=== PATIENT | male | born 1970 ===

== ENCOUNTER 2018-06-07 14:24 | Emergency (ER) | payer OTHER, SELFPAY ==
[2018-06-07 14:30] VITALS: BP 123/86; PULSE 75; RESP 15; TEMP 98.5; O2SAT 97
--- NOTE | 2018-06-07 14:44 | ED PDOC ---
HPI: Back Time Seen by Provider: 06/07/18 14:36 Chief Complaint (Nursing): Back Pain Chief Complaint (Provider): Back Pain History Per: Patient, Dry Cleaner Helper (SAM Vargas at bedside for [place]ian Translation) History/Exam Limitations: no limitations Onset/Duration Of Symptoms: Days (x1) Current Symptoms Are (Timing): Still Present Additional Complaint(s): 48 year old male, with no significant past medical history, presenting for evaluation of back pain x1 day. Patient states he woke up this morning with the back pain. He denies any recent heavy lifting, trauma, fall, or urinary problems. Patient reports he fell off a ladder 8 years ago, but denies any history of back pain, or similar episodes of pain. Patient denies taking any medication for his pain today. PMD: None Past Medical History Reviewed: Historical Data, Nursing Documentation, Vital Signs Vital Signs: Last Vital Signs Temp 98.5 F 06/07/18 14:26 Pulse 75 06/07/18 14:26 Resp 15 06/07/18 14:26 BP 123/86 06/07/18 14:26 Pulse Ox 97 06/07/18 14:26 - Medical History PMH: No Chronic Diseases - Surgical History Surgical History: No Surg Hx - Family History Family History: States: Unknown Family Hx - Social History Current smoker - smoking cessation education provided: No Alcohol: Social Drugs: Denies - Immunization History Hx Tetanus Toxoid Vaccination: No (Pt. unsure.) - Home Medications Home Medications: Ambulatory Orders Medication Instructions Recorded Cyclobenzaprine [Cyclobenzaprine 10 mg PO TID PRN #20 tab 06/07/18 HCl] Naproxen [Naprosyn] 500 mg PO BID #20 tab 06/07/18 - Allergies Allergies/Adverse Reactions: Allergies Allergy/AdvReac Type Severity Reaction Status Date / Time No Known Allergies Allergy Verified 06/07/18 14:26 Review of Systems ROS Statement: Except As Marked, All Systems Reviewed And Found Negative Genitourinary Male: Negative for: Dysuria, Frequency, Incontinence, Hematuria Musculoskeletal: Positive for: Back Pain Physical Exam - Reviewed Nursing Documentation Reviewed: Yes Vital Signs Reviewed: Yes - Physical Exam Appears: Positive for: Well, Non-toxic, No Acute Distress Head Exam: Positive for: ATRAUMATIC Skin: Positive for: Normal Color. Negative for: Rash Eye Exam: Positive for: Normal appearance Cardiovascular/Chest: Positive for: Regular Rate, Rhythm Respiratory: Positive for: Normal Breath Sounds. Negative for: Respiratory Distress Back: Positive for: Vertebral Tenderness (tenderness to midline of lumbar spine , (-) step-off) Neurologic/Psych: Positive for: Alert, Oriented - Laboratory Results Urine dip results: Negative for: Leukocyte Esterase, Blood, Nitrate, Ketones, Glucose, Bilirubin, Protein - ECG O2 Sat by Pulse Oximetry: 97 (RA) Pulse Ox Interpretation: Normal - Other Rad LS Spine X-ray X-Ray: Interpreted by Me, Viewed By Me X-Ray Interpretation: no fx, no dis, no acute finding Medical Decision Making Medical Decision Makin:31 Impression: 48 year old male with back pain Plan: -Urine dip -X-Ray Lumbar Spine -Toradol 30mg IM -Flexeril 10mg PO -Tylenol 975mg PO Patient made aware of x-ray results. All questions answered. Patient feels better after meds given in ED. Will d/c with rx naprosyn and flexeril. Patient was referred to clinic for follow up. Scribe Attestation: Documented by Michael Campbell, acting as a scribe for Renay Burdick PA-C. Provider Scribe Attestation: All medical record entries made by the scribe were at my direction and personally dictated by me. I have reviewed the chart and agree that the record accurately reflects my personal performance of the history, physical exam, medical decision making, and the department course for this patient. I have also personally directed, reviewed, and agree with the discharge instructions and disposition. Disposition - Clinical Impression Clinical Impression: Back strain - Patient ED Disposition Is Patient to be Admitted: No Counseled Patient/Family Regarding: Studies Performed, Diagnosis, Need For Followup, Rx Given - Disposition Referrals: [facility] [Outside] Disposition: Routine/Home Disposition Time: 15:00 Condition: STABLE Additional Instructions: Take rx meds as directed. Rest and avoid heavy lifting. Follow up with clinic in 2-3 days. Prescriptions: Cyclobenzaprine [Cyclobenzaprine HCl] 10 mg PO TID PRN #20 tab PRN Reason: Muscle Spasm Naproxen [Naprosyn] 500 mg PO BID #20 tab Instructions: Low Back Pain in Adults, Muscle Strain, Back Exercises Forms: [employer] (Namibian) Print Language: BURKINAN
--- NOTE | 2018-06-07 16:05 | RAD ---
Date of service: 06/07/2018 PROCEDURE: Radiographs of the Lumbar Spine. HISTORY: Pain. COMPARISON: No prior. FINDINGS: BONES: Normal alignment. No listhesis. No fracture. DISC SPACES: Degenerative spondylosis seen at the L4-L5 level with disc space narrowing more so along the posterior disc margin endplate eburnation and small marginal anterolateral osteophyte formation. Minor posterior disc space narrowing seen at the remaining levels. Small marginal anterior osteophyte formation also noted at the L3-L4 level. Facets are slightly prominent at the L5-S1 through the L3-L4 levels. OTHER FINDINGS: None. IMPRESSION: No acute fractures. Degenerative spondylosis most notably affecting the L4-L5 level as detailed above
== END 2018-06-07 15:43 | disposition home or self-care (01) ==
LOC: H.ER 14:24
DX: S39.012A Strain of muscle, fascia and tendon of lower back, initial encounter (principal); W11.XXXA Fall on and from ladder, initial encounter
CPT/HCPCS: 72100; 96372; 99283; J1885